=== PATIENT | female | born 2000 | race American Indian/Alaskan Native ===

== ENCOUNTER 2019-12-23 07:30 | Inpatient (IN) | payer BC, MEDICAID ==
[2019-12-23] MEDS ORDERED: HYDROmorphone 1 MG/1 ML INJ IV ONE ×3 (09:11→10:57)
[2019-12-23] MEDS ORDERED: diphenhydrAMINE 50 MG/ML VIAL IV ONE (09:11)
[2019-12-23] MEDS ORDERED: ONDANSETRON 4 MG/2 ML INJ IV ONE (09:11)
--- NOTE | 2019-12-23 09:14 | Emergency Department Report ---
ED General Adult HPI - General Chief complaint: Sickle Cell Crisis Stated complaint: SICKEL CELL PAIN Time Seen by Provider: 12/23/19 09:08 Source: patient Mode of arrival: Ambulatory Limitations: No Limitations - History of Present Illness Initial comments: Ying is a 19-year-old female with history of sickle cell disease who presents with "sickle cell pain". She has 9/10 pain in her joints and back. She has been hurting for 3 days. She takes ibuprofen at home. Primary care physician Dr. Evangelista -: Gradual Location: back, left, right, lower extremity Severity scale (0 -10): 9 Quality: aching Consistency: constant Improves with: none Worsens with: none Associated Symptoms: denies other symptoms Treatments Prior to Arrival: NSAID (Ibuprofen) - Related Data Home Medications Medication Instructions Recorded Confirmed Last Taken Albuterol Sulfate [Proair 2 puff IH Q6H PRN 07/03/19 09/23/19 Unknown Respiclick] Cetirizine HCl [ZyrTEC 10mg cap] 10 mg PO DAILY 07/03/19 09/23/19 Unknown Cholecalciferol (Vitamin D3) 5,000 unit PO DAILY 07/03/19 09/23/19 Unknown [Vitamin D3 5,000 UNIT] Folic Acid [Folvite] 1 mg PO DAILY 07/03/19 09/23/19 Unknown Hydroxyurea [Siklos] 1,500 mg PO DAILY 07/03/19 09/23/19 Unknown Methocarbamol [Robaxin] 500 mg PO DAILY PRN 07/03/19 09/23/19 Unknown Folic Acid 1 mg PO QDAY 10/09/19 11/11/19 Unknown Hydroxyurea [Siklos] 1,500 mg PO QDAY 10/09/19 11/11/19 Unknown oxyCODONE /ACETAMINOPHEN [Percocet 1 tab PO Q8H PRN 10/09/19 11/11/19 Unknown 5/325 mg] Previous Rx's Medication Instructions Recorded Last Taken Type Ondansetron [Zofran ODT TAB] 4 mg PO Q8HR PRN #12 tab 08/06/19 Unknown Rx diphenhydrAMINE [Benadryl CAP] 50 mg PO Q8HR PRN #12 capsule 08/06/19 Unknown Rx oxyCODONE [roxiCODONE] 5 mg PO Q8H PRN #12 tab 08/06/19 Unknown Rx Allergies Allergy/AdvReac Type Severity Reaction Status Date / Time morphine Allergy Rash Verified 11/12/19 11:37 ED Review of Systems ROS: Stated complaint: SICKEL CELL PAIN Other details as noted in HPI Comment: All other systems reviewed and negative Constitutional: denies: fever, malaise Respiratory: denies: cough, shortness of breath Gastrointestinal: denies: abdominal pain, nausea, vomiting ED Past Medical Hx - Past Medical History Previous Medical History?: Yes Hx Congestive Heart Failure: No Hx Diabetes: No Hx Sickle Cell Disease: Yes Hx Asthma: Yes Hx COPD: No Hx HIV: No - Surgical History Past Surgical History?: Yes Additional Surgical History: mass removal from heart - Social History Smoking Status: Never Smoker Substance Use Type: None - Medications Home Medications: Home Medications Medication Instructions Recorded Confirmed Last Taken Type Albuterol Sulfate [Proair 2 puff IH Q6H PRN 07/03/19 09/23/19 Unknown History Respiclick] Cetirizine HCl [ZyrTEC 10mg cap] 10 mg PO DAILY 07/03/19 09/23/19 Unknown History Cholecalciferol (Vitamin D3) 5,000 unit PO DAILY 07/03/19 09/23/19 Unknown History [Vitamin D3 5,000 UNIT] Folic Acid [Folvite] 1 mg PO DAILY 07/03/19 09/23/19 Unknown History Hydroxyurea [Siklos] 1,500 mg PO DAILY 07/03/19 09/23/19 Unknown History Methocarbamol [Robaxin] 500 mg PO DAILY PRN 07/03/19 09/23/19 Unknown History Ondansetron [Zofran ODT TAB] 4 mg PO Q8HR PRN #12 tab 08/06/19 09/23/19 Unknown Rx diphenhydrAMINE [Benadryl CAP] 50 mg PO Q8HR PRN #12 capsule 08/06/19 09/23/19 Unknown Rx oxyCODONE [roxiCODONE] 5 mg PO Q8H PRN #12 tab 08/06/19 09/23/19 Unknown Rx Folic Acid 1 mg PO QDAY 10/09/19 11/11/19 Unknown History Hydroxyurea [Siklos] 1,500 mg PO QDAY 10/09/19 11/11/19 Unknown History oxyCODONE /ACETAMINOPHEN [Percocet 1 tab PO Q8H PRN 10/09/19 11/11/19 Unknown History 5/325 mg] ED Physical Exam - General Limitations: No Limitations General appearance: alert, in no apparent distress - Head Head exam: Present: atraumatic, normocephalic - Eye Eye exam: Present: normal appearance - ENT ENT exam: Present: mucous membranes moist - Neck Neck exam: Present: normal inspection, full ROM - Respiratory Respiratory exam: Present: normal lung sounds bilaterally. Absent: respiratory distress, wheezes, rales, rhonchi - Cardiovascular Cardiovascular Exam: Present: regular rate, normal rhythm, normal heart sounds. Absent: systolic murmur, diastolic murmur, rubs, gallop - GI/Abdominal GI/Abdominal exam: Present: soft, normal bowel sounds. Absent: distended, tenderness, guarding, rebound - Extremities Exam Extremities exam: Present: normal inspection - Neurological Exam Neurological exam: Present: alert, oriented X3 - Psychiatric Psychiatric exam: Present: normal affect, normal mood - Skin Skin exam: Present: warm, dry, intact, normal color. Absent: rash ED Course Vital Signs 12/23/19 12/23/19 12/23/19 07:33 09:05 09:07 Temperature 97.7 F Pulse Rate 96 H 78 Respiratory 18 18 Rate Blood Pressure 119/57 Blood Pressure 106/52 [Right] O2 Sat by Pulse 96 99 99 Oximetry 12/23/19 12/23/19 12/23/19 09:16 09:30 09:46 Temperature Pulse Rate Respiratory Rate Blood Pressure 106/52 106/52 106/52 Blood Pressure [Right] O2 Sat by Pulse 99 98 100 Oximetry 12/23/19 12/23/19 12/23/19 10:00 10:05 10:16 Temperature Pulse Rate Respiratory 16 Rate Blood Pressure 116/70 116/70 Blood Pressure [Right] O2 Sat by Pulse 100 97 Oximetry 12/23/19 12/23/19 12/23/19 10:30 10:35 10:42 Temperature Pulse Rate 77 Respiratory 15 18 16 Rate Blood Pressure 107/56 Blood Pressure [Right] O2 Sat by Pulse 97 Oximetry 12/23/19 10:46 Temperature Pulse Rate 72 Respiratory 8 L Rate Blood Pressure 93/58 Blood Pressure [Right] O2 Sat by Pulse 96 Oximetry ED Medical Decision Making - Lab Data Result diagrams: 12/23/19 10:06 12/23/19 10:06 - Medical Decision Making Noemi presents today with sickle cell disease pain crisis. H&H at baseline. Bilirubin slightly elevated. No indication of infection. Dr. Evangelista will admit for further treatment and evaluation Critical care attestation.: If time is entered above; I have spent that time in minutes in the direct care of this critically ill patient, excluding procedure time. ED Disposition Clinical Impression: Sickle cell anemia with crisis Disposition: DC-09 OP ADMIT IP TO THIS HOSP Is pt being admited?: Yes Does the pt Need Aspirin: No Condition: Stable
[2019-12-23] MEDS ORDERED: D5W/0.2% NACL 1,000 ML IV SCH (10:00)
[2019-12-23 10:22] LABS: Hematocrit 22.5 % (30.3-42.9); Hemoglobin 7.9 gm/dl (10.1-14.3); Mean Corpuscular HGB Conc 35 % (30-34); Mean Corpuscular Volume 91 fl (79-97); Platelet Count 323 K/mm3 (140-440); Red Blood Count 2.49 M/mm3 (3.65-5.03); Red Cell Distribution Width 17.8 % (13.2-15.2)
[2019-12-23 10:42] LABS: Alanine Aminotransferase 13 units/L (7-56); Albumin 4.5 g/dL (3.9-5); BUN/Creatinine Ratio 23; Blood Urea Nitrogen 9 mg/dL (7-17); Calcium 9.1 mg/dL (8.4-10.2); Hemolysis Index 7
[2019-12-23] MEDS ORDERED: HYDROmorphone 1 MG/1 ML INJ ONE (11:23)
[2019-12-23] MEDS ORDERED: oxyCODONE 5 MG TAB PO PRN (11:58)
[2019-12-23 12:00] LABS: Anisocytosis 1+; Basophils % (Manual) 0 % (0.0-1.8); Eosinophils % (Manual) 0 % (0.0-4.3); Poikilocytosis 2+; Total Cells Counted 100
[2019-12-23 12:01] LABS: Hypochromasia 1+; Ovalocytes 1+; Platelet Estimate Consistent w Auto
[2019-12-23] MEDS ORDERED: diphenhydrAMINE 50 MG/ML VIAL ONE (12:04)
[2019-12-23] MEDS: diphenhydrAMINE 50 MG/ML VIAL IV PRN ×4 (12:05→21:21)
[2019-12-23] MEDS: HYDROmorphone 2 MG/1 ML INJ IV PRN ×3 (15:15→21:22)
[2019-12-23] MEDS: HYDROXYUREA 500 MG CAP PO SCH (15:19)
[2019-12-23] MEDS: D5W/0.2% NACL 1,000 ML IV SCH ×2 (15:21→21:22)
[2019-12-23] MEDS ORDERED: MAGNESIUM HYDROXIDE (MOM) ORAL LIQD UDC PO PRN (19:30)
[2019-12-23] MEDS: ONDANSETRON 4 MG/2 ML INJ IV PRN (21:21)
[2019-12-24] MEDS: HYDROmorphone 2 MG/1 ML INJ IV PRN ×7 (00:20→21:13)
[2019-12-24] MEDS: ACETAMINOPHEN 325 MG TAB PO PRN ×2 (00:21→21:26)
[2019-12-24] MEDS: diphenhydrAMINE 50 MG/ML VIAL IV PRN ×7 (00:21→21:13)
[2019-12-24] MEDS: D5W/0.2% NACL 1,000 ML IV SCH ×5 (00:22→22:21)
[2019-12-24] MEDS: ONDANSETRON 4 MG/2 ML INJ IV PRN ×2 (06:23→16:37)
[2019-12-24] MEDS: HYDROXYUREA 500 MG CAP PO SCH (10:02)
--- NOTE | 2019-12-24 18:55 | History and Physical Report ---
History of Present Illness Date of examination: 12/23/19 Date of admission: 12/23/19 10:56 Chief complaint: SCD/Sickle pain/anemia. History of present illness: Patient presented to the ED, with CC of diffuse joint pain, and unable to control at home, hence the ED visit. She was seen by the ED doctor, and she was admitted, for sxs management/ control.She is getting hydration, pain control.monitor labs, and adjust.Once controlled, she will be discharged home. Past History Past Medical History: anemia Past Surgical History: No surgical history Social history: single, lives with family Family history: no significant family history Medications and Allergies Allergies Allergy/AdvReac Type Severity Reaction Status Date / Time morphine Allergy Rash Verified 11/12/19 11:37 Home Medications Medication Instructions Recorded Confirmed Last Taken Type Albuterol Sulfate [Proair 2 puff IH Q6H PRN 07/03/19 12/23/19 Unknown History Respiclick] Cetirizine HCl [ZyrTEC 10mg cap] 10 mg PO DAILY 07/03/19 12/23/19 Unknown History Cholecalciferol (Vitamin D3) 5,000 unit PO DAILY 07/03/19 12/23/19 Unknown History [Vitamin D3 5,000 UNIT] Folic Acid [Folvite] 1 mg PO DAILY 07/03/19 12/23/19 Unknown History Methocarbamol [Robaxin] 500 mg PO DAILY PRN 07/03/19 12/23/19 Unknown History Ondansetron [Zofran ODT TAB] 4 mg PO Q8HR PRN #12 tab 08/06/19 12/23/19 Unknown Rx diphenhydrAMINE [Benadryl CAP] 50 mg PO Q8HR PRN #12 capsule 08/06/19 12/23/19 U nknown Rx oxyCODONE [roxiCODONE] 5 mg PO Q8H PRN #12 tab 08/06/19 12/23/19 Unknown Rx Hydroxyurea [Siklos] 1,500 mg PO QDAY 10/09/19 12/23/19 Unknown History Active Meds: Active Medications Acetaminophen (Tylenol) 650 mg PO Q6H PRN PRN Reason: Pain, Mild (1-3) Last Admin: 12/24/19 00:21 Dose: 650 mg Documented by: Diphenhydramine HCl (Benadryl) 12.5 mg IV Q3H PRN PRN Reason: Itching Last Admin: 12/24/19 16:31 Dose: 12.5 mg Documented by: Hydromorphone HCl (Dilaudid) 2 mg IV Q3H PRN PRN Reason: Pain , Severe (7-10) Last Admin: 12/24/19 16:30 Dose: 2 mg Documented by: Hydroxyurea (Hydroxyurea) 1,500 mg PO QDAY KATHERYN Last Admin: 12/24/19 10:02 Dose: 1,500 mg Documented by: Dextrose/Sodium Chloride (D5ns 0.2%) 1,000 mls @ 250 mls/hr IV DIRECT KATHERYN Last Admin: 12/24/19 18:16 Dose: 250 mls/hr Documented by: Magnesium Hydroxide (Milk Of Magnesia) 30 ml PO BID PRN PRN Reason: Constipation Ondansetron HCl (Zofran) 4 mg IV Q6H PRN PRN Reason: Nausea And Vomiting Last Admin: 12/24/19 16:37 Dose: 4 mg Documented by: Oxycodone HCl (Roxicodone) 10 mg PO Q8H PRN PRN Reason: Pain, Moderate (4-6) Review of Systems Constitutional: fatigue, chronic pain Breasts: deferred Gastrointestinal: nausea Musculoskeletal: low back pain Exam - Constitutional Vitals: Temp Pulse Resp BP Pulse Ox 98.0 F 76 16 102/42 95 12/24/19 16:43 12/24/19 16:43 12/24/19 16:43 12/24/19 16:43 12/24/19 16:43 General appearance: Present: mild distress, well-nourished - EENT Eyes: Present: PERRL ENT: hearing intact, clear oral mucosa - Neck Neck: Present: supple, normal ROM - Respiratory Respiratory effort: normal Respiratory: bilateral: CTA - Cardiovascular Heart Sounds: Present: S1 & S2. Absent: rub, click - Extremities Extremities: pulses symmetrical, No edema Peripheral Pulses: within normal limits - Abdominal General gastrointestinal: Present: soft, non-tender, non-distended, normal bowel sounds Female genitourinary: Present: deferred - Rectal Rectal Exam: deferred - Integumentary Integumentary: Present: clear, warm, dry - Musculoskeletal Musculoskeletal: gait normal, strength equal bilaterally - Psychiatric Psychiatric: appropriate mood/affect, intact judgment & insight - Neurologic Neurologic: CNII-XII intact, moves all extremities Results - Labs CBC & Chem 7: 12/23/19 10:06 12/23/19 10:06 Assessment and Plan - Patient Problems (1) Sickle cell anemia with crisis Current Visit: Yes Status: Chronic Plan to address problem: Pain control, supportive care. (2) Dehydration Current Visit: No Status: Resolved Plan to address problem: Re hydration. (3) Anemia Current Visit: Yes Status: Acute Plan to address problem: Monitor, and adjust hem abreu.
[2019-12-25] MEDS: HYDROmorphone 2 MG/1 ML INJ IV PRN ×6 (00:36→21:33)
[2019-12-25] MEDS: diphenhydrAMINE 50 MG/ML VIAL IV PRN ×6 (00:36→21:33)
[2019-12-25] MEDS: ONDANSETRON 4 MG/2 ML INJ IV PRN ×3 (00:36→21:33)
[2019-12-25] MEDS: D5W/0.2% NACL 1,000 ML IV SCH ×6 (02:06→23:59)
[2019-12-25] MEDS: HYDROXYUREA 500 MG CAP PO SCH (10:15)
[2019-12-25] MEDS: ACETAMINOPHEN 325 MG TAB PO PRN (14:06)
--- NOTE | 2019-12-25 20:46 | Discharge Summary ---
Providers - Providers Date of Admission: 12/23/19 10:56 Date of discharge: 12/26/19 Attending physician: SANTIAGO BOTELLO Primary care physician: [facility] Hospitalization Reason for admission: SCD/acute pain crisis. Condition: Fair Hospital course: Patient presented to the ER on the day of admission, for diffuse joint pain. She was admitted , for sxs management, and control.She was treated , with pain meds, hydration, and labs monitored. She tolerated all her tx so far well. Her pain at this moment, is reported as 5-6/10. She will get a few more tx, and discharge home tomorrow afternoon.She denies any new issues at this time. Disposition: - TO HOME OR SELFCARE - Discharge Diagnoses (1) Sickle cell anemia with crisis Status: Resolved (2) Dehydration Status: Resolved (3) Anemia Status: Chronic Core Measure Documentation - Palliative Care Palliative Care/ Comfort Measures: Not Applicable - Core Measures Any of the following diagnoses?: none Exam - Constitutional Vitals: Temp Pulse Resp BP Pulse Ox 98.3 F 70 15 106/56 99 12/25/19 13:35 12/25/19 13:35 12/25/19 13:35 12/25/19 13:35 12/25/19 13:35 General appearance: Present: mild distress, well-nourished - EENT Eyes: Present: PERRL ENT: hearing intact, clear oral mucosa - Neck Neck: Present: supple, normal ROM - Respiratory Respiratory effort: normal Respiratory: bilateral: CTA - Cardiovascular Heart Sounds: Present: S1 & S2. Absent: rub, click - Extremities Extremities: pulses symmetrical, No edema Peripheral Pulses: within normal limits - Abdominal General gastrointestinal: Present: soft, non-tender, non-distended, normal bowel sounds Female genitourinary: Present: deferred - Rectal Rectal Exam: deferred - Integumentary Integumentary: Present: clear, warm, dry - Musculoskeletal Musculoskeletal: gait normal, strength equal bilaterally - Psychiatric Psychiatric: appropriate mood/affect, intact judgment & insight - Neurologic Neurologic: CNII-XII intact, moves all extremities Plan Activity: no restrictions Diet: regular Follow up with: PRIMARY CARE, [Primary Care Provider] - 7 Days SANTIAGO BOTELLO DO [Staff Physician] - 7 Days
[2019-12-26] MEDS: HYDROmorphone 2 MG/1 ML INJ IV PRN ×3 (00:44→08:42)
[2019-12-26] MEDS: diphenhydrAMINE 50 MG/ML VIAL IV PRN ×3 (00:44→08:42)
[2019-12-26] MEDS: D5W/0.2% NACL 1,000 ML IV SCH (03:45)
[2019-12-26] MEDS: ONDANSETRON 4 MG/2 ML INJ IV PRN (03:49)
[2019-12-26] MEDS: HYDROXYUREA 500 MG CAP PO SCH (10:52)
[2019-12-26] MEDS ORDERED: NEOMY 3.5 MG/BACIT 400 UNITS/POLY B 5000 UNITS/GM OINT PACKET TP ONE (12:37)
[2019-12-26 12:55] VITALS: BP 107/50
== END 2019-12-26 13:14 | disposition home or self-care (01) | DRG 812 ==
LOC: ED 07:30 → 3A 10:56
PROVIDERS: ADMIT Internal Medicine Hematology & Oncology; ATTEND Internal Medicine Hematology & Oncology
DX: D57.00 Hb-SS disease with crisis, unspecified (principal); D64.9 Anemia, unspecified; E86.0 Dehydration; Z88.5 Allergy status to narcotic agent; Z79.899 Other long term (current) drug therapy
CPT/HCPCS: 36415; 80053; 85007; 85025; 85045; 94760; 96374; 96375; 96376; G0378; A6250; J1170; J1200; J1642; J2405

== ENCOUNTER 2020-04-17 02:28 | Emergency (ER) | payer MEDICAID ==
[2020-04-17 03:57] LABS: Hematocrit 25.8 % (30.3-42.9); Hemoglobin 8.5 gm/dl (10.1-14.3); Mean Corpuscular HGB Conc 33 % (30-34); Mean Corpuscular Volume 94 fl (79-97); Platelet Count 141 K/mm3 (140-440); Red Blood Count 2.75 M/mm3 (3.65-5.03)
[2020-04-17 04:14] LABS: Red Cell Distribution Width 26.1 % (13.2-15.2)
[2020-04-17 06:03] LABS: Band Neutrophils # (Manual) 0.1 K/mm3; Basophils % (Manual) 0 % (0.0-1.8); Total Cells Counted 100
[2020-04-17 06:14] LABS: Anisocytosis 3+; Macrocytosis Few
[2020-04-17 06:15] LABS: Ovalocytes Few; Target Cells 1+
[2020-04-17 06:16] LABS: Hypochromasia Rare; Platelet Estimate Consistent w Auto
[2020-04-17] MEDS ORDERED: ONDANSETRON 4 MG/2 ML INJ IV ONE (06:38)
[2020-04-17] MEDS ORDERED: KETOROLAC 30 MG/1 ML INJ IV ONE (06:38)
[2020-04-17] MEDS ORDERED: HYDROmorphone 1 MG/1 ML INJ IV ONE ×2 (06:38→07:46)
[2020-04-17] MEDS ORDERED: diphenhydrAMINE 50 MG/ML VIAL IV ONE ×2 (06:39→09:50)
--- NOTE | 2020-04-17 06:42 | Emergency Department Report ---
ED General Adult HPI - General Chief complaint: Sickle Cell Crisis Stated complaint: SICKLE CELL PAIN Time Seen by Provider: 04/17/20 06:33 Source: patient Mode of arrival: Ambulatory Limitations: No Limitations - History of Present Illness Initial comments: 19-year-old female with a past medical history of asthma, surgical "Mass removal from heart", sickle cell disease presents to the hospital complaining of sickle cell crisis for the past 5 days. Patient has not had any Percocet in several weeks. She states pain is diffusely at her joints, rated 9/10 intensity, no aggravating or alleviating factors. Pain is typical of sickle cell crisis. She denies fever, chest pain, or shortness of breath. LMP was February 15. Patient is not currently on control. Educational Specialist: Dr. Vogel - Related Data Home Medications Medication Instructions Recorded Confirmed Last Taken Albuterol Sulfate [Proair 2 puff IH Q6H PRN 07/03/19 02/07/20 01/17/20 08:13 Respiclick] Cetirizine HCl [ZyrTEC 10mg cap] 10 mg PO DAILY 07/03/19 02/07/20 02/06/20 08:12 Cholecalciferol (Vitamin D3) 5,000 unit PO DAILY 07/03/19 02/07/20 02/06/20 08:12 [Vitamin D3 5,000 UNIT] Folic Acid [Folvite] 1 mg PO DAILY 07/03/19 02/07/20 02/06/20 08:12 Methocarbamol [Robaxin] 500 mg PO DAILY PRN 07/03/19 02/07/20 02/06/20 08:11 Hydroxyurea [Siklos] 1,500 mg PO QDAY 10/09/19 02/07/20 02/06/20 08:11 Previous Rx's Medication Instructions Recorded Last Taken Type Ondansetron [Zofran ODT TAB] 4 mg PO Q8HR PRN #12 tab 08/06/19 01/24/20 08:11 Rx diphenhydrAMINE [Benadryl CAP] 50 mg PO Q8HR PRN #12 capsule 08/06/19 02/04/20 Rx Oxycodone HCl/Acetaminophen 1 each PO Q6HR PRN #20 tablet 04/17/20 Unknown Rx [Percocet 10/325 mg] Allergies Allergy/AdvReac Type Severity Reaction Status Date / Time morphine Allergy Rash Verified 02/07/20 01:50 ED Review of Systems ROS: Stated complaint: SICKLE CELL PAIN Other details as noted in HPI Comment: All other systems reviewed and negative ED Past Medical Hx - Past Medical History Previous Medical History?: Yes Hx Congestive Heart Failure: No Hx Diabetes: No Hx Sickle Cell Disease: Yes Hx Asthma: Yes Hx COPD: No Hx HIV: No - Surgical History Past Surgical History?: Yes Additional Surgical History: mass removal from heart - Social History Smoking Status: Never Smoker Substance Use Type: Marijuana - Medications Home Medications: Home Medications Medication Instructions Recorded Confirmed Last Taken Type Albuterol Sulfate [Proair 2 puff IH Q6H PRN 07/03/19 02/07/20 01/17/20 08:13 History Respiclick] Cetirizine HCl [ZyrTEC 10mg cap] 10 mg PO DAILY 07/03/19 02/07/20 02/06/20 08:12 History Cholecalciferol (Vitamin D3) 5,000 unit PO DAILY 07/03/19 02/07/20 02/06/20 08:12 History [Vitamin D3 5,000 UNIT] Folic Acid [Folvite] 1 mg PO DAILY 07/03/19 02/07/20 02/06/20 08:12 History Methocarbamol [Robaxin] 500 mg PO DAILY PRN 07/03/19 02/07/20 02/06/20 08:11 History Ondansetron [Zofran ODT TAB] 4 mg PO Q8HR PRN #12 tab 08/06/19 02/07/20 01/24/20 08:11 Rx diphenhydrAMINE [Benadryl CAP] 50 mg PO Q8HR PRN #12 capsule 08/06/19 02/07/20 02/04/20 Rx Hydroxyurea [Siklos] 1,500 mg PO QDAY 10/09/19 02/07/20 02/06/20 08:11 History Oxycodone HCl/Acetaminophen 1 each PO Q6HR PRN #20 tablet 04/17/20 Unknown Rx [Percocet 10/325 mg] ED Physical Exam - General Limitations: No Limitations - Other Other exam information: General: No acute distress Head: Atraumatic Eyes: normal appearance ENT: Moist mucous membranes Neck: Normal appearance, no midline tenderness Chest: Clear to auscultation bilaterally CV: Regular rate and rhythm Abdomen: Soft, normal bowel sounds, nontender, nondistended, no rebound or guarding Back: Normal inspection Extremity: Normal inspection, full range of motion Neuro: Alert O x 3, no facial asymmetry, speech clear, no gross motor sensory deficit Psych: Appropriate behavior Skin: No rash ED Course Vital Signs 04/17/20 04/17/20 04/17/20 02:44 07:00 07:04 Temperature 98.5 F Pulse Rate 102 H 93 H Respiratory 20 19 Rate Blood Pressure 116/64 95/65 O2 Sat by Pulse 99 100 Oximetry 04/17/20 04/17/20 04/17/20 07:06 07:30 08:00 Temperature Pulse Rate 91 H 79 Respiratory 19 Rate Blood Pressure 117/58 114/50 O2 Sat by Pulse 96 98 Oximetry 04/17/20 04/17/20 08:30 09:00 Temperature Pulse Rate 70 75 Respiratory Rate Blood Pressure 96/47 101/50 O2 Sat by Pulse 97 Oximetry ED Medical Decision Making - Lab Data Result diagrams: 04/17/20 03:17 Lab Results 04/17/20 04/17/20 Range/Units 03:17 06:41 WBC 8.6 (4.5-11.0) K/mm3 RBC 2.75 L (3.65-5.03) M/mm3 Hgb 8.5 L (10.1-14.3) gm/dl Hct 25.8 L (30.3-42.9) % MCV 94 (79-97) fl MCH 31 (28-32) pg MCHC 33 (30-34) % RDW 26.1 H (13.2-15.2) % Plt Count 141 (140-440) K/mm3 Add Manual Diff Complete Total Counted 100 Seg Neuts % (Manual) 69.0 (40.0-70.0) % Band Neutrophils % 1.0 % Lymphocytes % (Manual) 26.0 (13.4-35.0) % Reactive Lymphs % (Man) 0 % Monocytes % (Manual) 3.0 (0.0-7.3) % Eosinophils % (Manual) 1.0 (0.0-4.3) % Basophils % (Manual) 0 (0.0-1.8) % Metamyelocytes % 0 % Myelocytes % 0 % Promyelocytes % 0 % Blast Cells % 0 % Nucleated RBC % 2.0 H (0.0-0.9) % Seg Neutrophils # Man 5.9 (1.8-7.7) K/mm3 Band Neutrophils # 0.1 K/mm3 Lymphocytes # (Manual) 2.2 (1.2-5.4) K/mm3 Abs React Lymphs (Man) 0.0 K/mm3 Monocytes # (Manual) 0.3 (0.0-0.8) K/mm3 Eosinophils # (Manual) 0.1 (0.0-0.4) K/mm3 Basophils # (Manual) 0.0 (0.0-0.1) K/mm3 Metamyelocytes # 0.0 K/mm3 Myelocytes # 0.0 K/mm3 Promyelocytes # 0.0 K/mm3 Blast Cells # 0.0 K/mm3 WBC Morphology Not Reportable Hypersegmented Neuts Not Reportable Hyposegmented Neuts Not Reportable Hypogranular Neuts Not Reportable Smudge Cells Not Reportable Toxic Granulation Not Reportable Toxic Vacuolation Not Reportable Dohle Bodies Not Reportable Pelger-Huet Anomaly Not Reportable [place] Rods Not Reportable Platelet Estimate Consistent w auto Clumped Platelets Not Reportable Plt Clumps, EDTA Not Reportable Large Platelets Not Reportable Giant Platelets Not Reportable Platelet Satelliting Not Reportable Plt Morphology Comment Not Reportable RBC Morphology Not Reportable Dimorphic RBCs Not Reportable Polychromasia Not Reportable Hypochromasia Rare Poikilocytosis Not Reportable Anisocytosis 3+ Microcytosis Rare Macrocytosis Few Spherocytes Not Reportable Pappenheimer Bodies Not Reportable Sickle Cells Not Reportable Target Cells 1+ Tear Drop Cells Not Reportable Ovalocytes Few Helmet Cells Not Reportable Humphries-[place] Bodies Not Reportable [place] Rings Not Reportable Indu Cells Not Reportable Bite Cells Not Reportable Crenated Cell Not Reportable Elliptocytes Not Reportable Acanthocytes (Spur) Not Reportable Rouleaux Not Reportable Hemoglobin C Crystals Not Reportable Schistocytes Not Reportable Malaria parasites Not Reportable Percent Retic 6.34 H (0.78-2.58) % Damian Bodies Not Reportable Hem Pathologist Commnt No HCG, Quant < 2 (0-4) mIU/mL - Medical Decision Making Patient received multiple doses of Dilaudid, Benadryl, Toradol, and Zofran in the ED. Pain decreased to 5/10 intensity. Patient states pain is controlled enough to go home with medications. Patient's hemoglobin is 8.5 and she does not require blood transfusion at this time Critical Care Time: No Critical care attestation.: If time is entered above; I have spent that time in minutes in the direct care of this critically ill patient, excluding procedure time. ED Disposition Clinical Impression: Sickle cell pain crisis Disposition: DC- TO HOME OR SELFCARE Is pt being admited?: No Does the pt Need Aspirin: No Condition: Stable Instructions: Sickle Cell Crisis (ED) Additional Instructions: Take the medication as prescribed. Follow-up with your doctor or doctor/clinic provided. Return if symptoms worsen as indicated by your discharge instructions. Prescriptions: Oxycodone HCl/Acetaminophen [Percocet 10/325 mg] 1 each PO Q6HR PRN #20 tablet PRN Reason: Pain Referrals: SANTIAGO BOTELLO DO [Primary Care Provider] - 3-5 Days Time of Disposition: 10:41
[2020-04-17] MEDS ORDERED: D5W/0.2% NACL 1,000 ML IV SCH (07:00)
[2020-04-17] MEDS ORDERED: HYDROmorphone 2 MG/1 ML INJ IV ONE (09:43)
[2020-04-17] MEDS ORDERED: diphenhydrAMINE 50 MG/ML VIAL ONE (09:52)
[2020-04-17 10:53] VITALS: BP 110/45
== END 2020-04-17 11:02 | disposition home or self-care (01) ==
LOC: ED 02:28
DX: D57.00 Hb-SS disease with crisis, unspecified (principal); J45.909 Unspecified asthma, uncomplicated; F12.10 Cannabis abuse, uncomplicated; Z79.899 Other long term (current) drug therapy; Z88.6 Allergy status to analgesic agent
CPT/HCPCS: 36415; 84702; 85007; 85025; 85045; 96374; 96375; 96376; 99283; J1170; J1200; J1642; J1885; J2405